=== PATIENT | male | born 1985 | race African-American/Black ===

== ENCOUNTER 2017-06-15 01:41 | Emergency (ER) | payer MEDICAID ==
[~2017-06-15] VITALS: Ht 180.3 cm; Wt 90.7 kg
[~2017-06-15 01:41] MED LIST: ALBUTEROL2 PUFFS/17 IN; AMLODIPINE10 MG PO; AMOXIL500 MG PO; MEDROL 4MG. DOSE4 MG PO; PROZAC 20MG CAP20 MG PO; RESTORIL 15MG C15 MG PO
[2017-06-15] MEDS ORDERED: ETODOLAC200 MG PO (02:13)
--- NOTE | 2017-06-15 02:14 | Emergency Room Report ---
History of Present Illness Time Seen by [id number] Presenting Problem in Triage Pt arrived: The patient is here with RIGHt upper extremity pain, onset 1 week ago, gradually getting worse. 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 Clinical Suspician of Infection? Mental Status: Sepsis Risk: Have you (or family members/close friends) recently traveled outside the [place]? If Yes, where/when: Have you had exposure to infectious disease within the past month? TB? Other? Specify: Source patient, RN notes reviewed, family, RN/MD Exam Limitations no limitations Comment This is a 31-year-old gentleman with history of cerebral palsy and peripheral neuropathy presented to the emergency room with RIGHT upper extremity pain after golfing for the past few days. He recognizes the same type of pain is in his RIGHT upper extremity, as the neuropathy affecting the lower extremities. Patient denies any injury to the RIGHT upper extremity. ALLERGIES Coded Allergies: No Known Allergies (03/19/17) Home Medications Reported Medications Fluoxetine Hcl (Prozac 20MG Capsule(Generic)) 20 MG PO DAILY HYDROXYZINE HCL (Hydroxyzine HCl) 25 MG PO NIGHT ONLY Metoprolol Tartrate (Metoprolol 25MG) 25 MG PO BID History Medical History General Angina: No OR: No Hypertension? Yes Hyperlipidemia? No DVT? No PE? No COPD? No Asthma? No Thyroid Problems? No Hypothyroidism? No CVA? No Seizures? No Diabetes? No GB Disease: No MRSA? No TB? No Cancer? No More? Yes Additional hx: CEREBRAL PALSY, REACTIVE AIRWAY DISEASE Immunization Hx DT/Tetanus NOT SURE Surgical Hx Previous Surgery?Y THROAT SURGERY WISDOM TEETH Social History Smoking Hx Packs/day < 1 Pack Alcohol Alcohol: No Review of Systems All Other Systems Reviewed and Negative Musculoskeletal joint pain (RIGHT upper extremity) Physical Exam Vital Signs Vital Signs Date Time Temp Pulse Resp B/P Pulse O2 O2 Flow FiO2 Ox Delivery Rate 06/15 0238 98.1 74 18 131/81 95 06/15 0217 98.1 74 18 131/81 95 General Appearance normal appearance, WD/WN, no apparent distress Respiratory Status Yes: trachea midline, chest symmetrical, non tender chest. No: respiratory distress. Lung Sounds bilateral: normal breath sounds, lungs clear. 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 No Comment Patient will be discharged home with trial of medications, instructed to follow up with PCP regarding additional outpatient workup, to include the nerve conduction studies and electromyogram of the RIGHT upper extremity. Results/Orders Current Medication Orders Sig/Rebekah Start time Last Medication Dose Route Stop Time Status Admin Tramadol HCl 0 .STK-MED ONE 06/15 0231 DC PO Tramadol HCl 1 RAFAEL ONCE ONE 06/15 0230 DC 06/15 PO 06/15 023 0235 Departure Departure Time of Disposition 0210 Disposition DC Home or Self Care(routine) Clinical Impression Primary Impression: Neuropathy Secondary Impressions: Right arm pain Condition STABLE Referrals Isabella GUTHRIE,Coy Lind (Family) Patient Instructions Neuropathic Pain Additional Instructions Presented the medications prescribed as directed, follow-up with your family physician within 2 days for additional outpatient workup (electromyogram and nerve conduction studies). Discharge Counseling Counseled pt/family regarding diagnosis, test results, medications/RX, home care, follow up needs Comment Presented the medications prescribed as directed, follow-up with your family physician within 2 days for additional outpatient workup (electromyogram and nerve conduction studies). ED Critical Care Critical Care No at 0819
[2017-06-15] MEDS ORDERED: HYDROXYZINE HCL25 M1 PO (02:22)
[2017-06-15] MEDS ORDERED: METOPROLOL 25 M25 MG PO (02:23)
[2017-06-15 02:38] VITALS: BP 131/81
== END 2017-06-15 02:39 | disposition home or self-care (01) ==
LOC: ER 01:41
DX: G62.89 Other specified polyneuropathies (principal); G80.9 Cerebral palsy, unspecified; I10 Essential (primary) hypertension

== ENCOUNTER → 2017-07-10 | Outpatient (CLI) | payer MEDICAID ==
[~2017-07-10] MED LIST changes: +ETODOLAC200 MG PO; +HYDROXYZINE HCL25 M1 PO; +METOPROLOL 25 M25 MG PO
[2017-07-14 18:37] LABS: Testosterone, Total, LC/MS 249.2 ng/dL (264.0-916.0)
== END ==
LOC: LAB 15:52
PROVIDERS: Emergency Medicine
DX: E34.9 Endocrine disorder, unspecified (principal); E29.0 Testicular hyperfunction